=== PATIENT | male | born 1960 | race Caucasian/White ===

== ENCOUNTER 2018-05-03 15:40 | Emergency (ER) | payer BC ==
[~2018-05-03 15:40] MED LIST: ALBU18HF2 IH; ASPI81TA35 PO; ATOR-2 PO; CLOP75TA33 PO; GABA-532 PO; GLIM4TAB79 PO; LISI1TAB11 PO; MELO-102 PO; METF-950 PO; METH-360 PO; METO50TA16 PO
--- NOTE | 2018-05-03 16:35 | NUR ---
PT CALLED X3 TO TRIAGE, NIL, DINING CAR CONDUCTOR NOTIFIED, NO FURTHER ACTION.
== END 2018-05-03 16:36 | disposition left against medical advice (07) ==
LOC: ER 15:41
DX: J34.89 Other specified disorders of nose and nasal sinuses (principal); Z53.21 Procedure and treatment not carried out due to patient leaving prior to being seen by health care provider

== ENCOUNTER 2018-05-04 18:43 | Emergency (ER) | payer BC, OTHER ==
[~2018-05-04] VITALS: Ht 175.3 cm; Wt 105.4 kg
[2018-05-04 18:57] VITALS: BP 171/102
[2018-05-05] MEDS ORDERED: sulfamethoxazole/trimethoprim DS (800/160mg) tablet PO ONE (00:10)
[2018-05-05] MEDS ORDERED: SULF1TAB49 PO (00:10)
== END 2018-05-05 00:17 | disposition home or self-care (01) ==
LOC: ER 18:43
DX: J34.0 Abscess, furuncle and carbuncle of nose (principal); I25.10 Atherosclerotic heart disease of native coronary artery without angina pectoris; E78.00 Pure hypercholesterolemia, unspecified; I10 Essential (primary) hypertension; G89.29 Other chronic pain; F17.200 Nicotine dependence, unspecified, uncomplicated; Z88.8 Allergy status to other drugs, medicaments and biological substances; Z79.82 Long term (current) use of aspirin; Z79.899 Other long term (current) drug therapy
CPT/HCPCS: 99283

== ENCOUNTER 2019-04-16 18:11 | Emergency (ER) | payer MEDICAID ==
[~2019-04-16] VITALS: Ht 175.3 cm; Wt 86.4 kg
[~2019-04-16 18:11] MED LIST changes: +GLIM4TAB4 PO; -GLIM4TAB79 PO; -LISI1TAB11 PO; +LISI1TAB28 PO
[2019-04-16 18:16] VITALS: BP 151/95
[2019-04-16] MEDS ORDERED: TETanus/Pertussis (Acell)/Diphther VAC/PF (Tdap-Adult) 0.5ml syringe IMVAC ONE (18:40)
== END 2019-04-16 19:54 | disposition home or self-care (01) ==
LOC: ER 18:12
DX: S81.011A Laceration without foreign body, right knee, initial encounter (principal); I25.10 Atherosclerotic heart disease of native coronary artery without angina pectoris; E78.00 Pure hypercholesterolemia, unspecified; I10 Essential (primary) hypertension; G89.29 Other chronic pain; Z98.890 Other specified postprocedural states; Z88.8 Allergy status to other drugs, medicaments and biological substances; Z79.82 Long term (current) use of aspirin; Z79.84 Long term (current) use of oral hypoglycemic drugs; Z79.899 Other long term (current) drug therapy; W26.8XXA Contact with other sharp object(s), not elsewhere classified, initial encounter; Y93.89 Activity, other specified; Y92.89 Other specified places as the place of occurrence of the external cause; Y99.8 Other external cause status
CPT/HCPCS: 12001; 73560; 90471; 90715; 99283

== ENCOUNTER 2019-09-29 10:29 | Emergency (ER) | payer MEDICAID ==
[~2019-09-29] VITALS: Ht 175.3 cm; Wt 90.0 kg
[~2019-09-29 10:29] MED LIST changes: -GLIM4TAB4 PO; +GLIM4TAB7 PO
[2019-09-29] MEDS ORDERED: LIDOcaine 1% W/epiNEPHrine 1:200,000 10ml vial IJ ONE (13:45)
[2019-09-29 15:17] VITALS: BP 135/94
== END 2019-09-29 15:26 | disposition home or self-care (01) ==
LOC: ER 10:29
DX: S80.12XA Contusion of left lower leg, initial encounter (principal); I25.10 Atherosclerotic heart disease of native coronary artery without angina pectoris; E78.00 Pure hypercholesterolemia, unspecified; I10 Essential (primary) hypertension; E11.9 Type 2 diabetes mellitus without complications; G89.29 Other chronic pain; Z88.8 Allergy status to other drugs, medicaments and biological substances; Z79.82 Long term (current) use of aspirin; Z79.899 Other long term (current) drug therapy; W01.0XXA Fall on same level from slipping, tripping and stumbling without subsequent striking against object, initial encounter; Y93.89 Activity, other specified; Y92.89 Other specified places as the place of occurrence of the external cause; Y99.8 Other external cause status
CPT/HCPCS: 10060; 10140; 99282; 99284

== ENCOUNTER 2019-12-14 08:45 | Emergency (ER) | payer MEDICAID ==
[~2019-12-14] VITALS: Ht 175.3 cm; Wt 109.1 kg
[~2019-12-14 08:45] MED LIST changes: -LISI1TAB28 PO; +LISI1TAB51 PO
[2019-12-14 09:06] VITALS: BP 129/87
--- NOTE | 2019-12-14 09:16 | NUR ---
pt is iv drug meth abuser multiple iv scab sr noted to the arms and legs.
[2019-12-14] MEDS ORDERED: DOXY100C43 PO (09:41)
[2019-12-14] MEDS ORDERED: CEPH500C5 PO (09:41)
[2019-12-14] MEDS ORDERED: IBUP-1985 PO (09:43)
[2019-12-14] MEDS ORDERED: cephalexin 500mg capsule PO ONE (09:45)
[2019-12-14] MEDS ORDERED: ibuprofen 200mg tablet PO ONE (09:45)
--- NOTE | 2019-12-14 09:47 | NUR ---
notified [facility] [employer] to tell pharmacist to verify the order of motrin.
--- NOTE | 2019-12-15 10:59 | NUR ---
Patient called regarding that fact that he was under the impression that prescriptions were called in last night to his pharmacy. I educated patient regarding the fact that he was given a written prescription and that we do not ever call in prescriptions, he is to take prescription into pharmacy of his choice. Patient stated that he is unable to get a ride to the pharmacy and that he will be getting them delivered. I told patient that I will call in prescriptions to pharmacy, but we do not normally call in prescriptions. Patient requested that prescription be called into [facility] in [place]. I called in prescripton that were prescribed for patient at time of discharge, to preferred pharmacy. Keflex doxycycline ibuprofen Patient is aware.
== END 2019-12-14 10:10 | disposition home or self-care (01) ==
LOC: ER 08:46
DX: L03.114 Cellulitis of left upper limb (principal); I25.10 Atherosclerotic heart disease of native coronary artery without angina pectoris; E78.00 Pure hypercholesterolemia, unspecified; I10 Essential (primary) hypertension; E11.9 Type 2 diabetes mellitus without complications; G89.29 Other chronic pain; F17.200 Nicotine dependence, unspecified, uncomplicated; F15.90 Other stimulant use, unspecified, uncomplicated; Z59.0 Homelessness; Z88.8 Allergy status to other drugs, medicaments and biological substances; Z79.82 Long term (current) use of aspirin; Z79.899 Other long term (current) drug therapy
CPT/HCPCS: 73130; 99283

== ENCOUNTER 2019-12-30 03:54 | Inpatient (IN) | payer MEDICAID ==
[~2019-12-30] VITALS: Ht 175.3 cm; Wt 94.4 kg
[2019-12-30] VITALS (9 sets, daily range): BP systolic 94–136; BP diastolic 52–92
[~2019-12-30 03:54] MED LIST changes: +CEPH500C5 PO; +DOXY100C43 PO; +IBUP-1985 PO
[2019-12-30] MEDS ORDERED: furosemide 40mg/4ml inj IV ONE (04:35)
[2019-12-30] MEDS ORDERED: ipratropium/albuterol 3ml nebule NEB ONE (04:35)
[2019-12-30] MEDS ORDERED: FUROSEMIDE ONE (04:45)
[2019-12-30] MEDS ORDERED: ipratropium/albuterol 3ml nebule ONE (04:50)
[2019-12-30 05:12] LABS: BASOPHILS # (AUTO) 0.1 X10'3 (0-0.2); BASOPHILS % (AUTO) 0.6 % (0-1); EOSINOPHILS # (AUTO) 0.1 X10'3 (0-0.9); EOSINOPHILS % (AUTO) 0.8 % (0-6); HEMATOCRIT 36.4 % (42.0-52.0); LYMPHOCYTES # (AUTO) 1.3 X10'3 (1.1-4.8); MEAN CORPUSCULAR HGB CONC 32.9 g/dL (33.0-36.5); MEAN CORPUSCULAR VOLUME 91.3 FL (78-98); MEAN PLATELET VOLUME 8.3 FL (7.4-10.4); MONOCYTES # (AUTO) 0.6 X10'3 (0-0.9); MONOCYTES % (AUTO) 7.4 % (2-12); NEUTROPHILS # (AUTO) 6.4 X10'3 (1.8-7.7); NEUTROPHILS % (AUTO) 76.2 % (42-75); PLATELET COUNT 270 X10'3 (140-440); RED BLOOD COUNT 3.99 X10'6 (4.70-6.10); WHITE BLOOD COUNT 8.4 X10'3 (4.5-11.0)
[2019-12-30 05:16] LABS: ALANINE AMINOTRANSFERASE 48 U/L (12-78); ALBUMIN 3.1 G/DL (3.4-5.0); ALBUMIN/GLOBULIN RATIO 0.9 (1.1-1.5); ALKALINE PHOSPHATASE 116 IU/L (46-116); ANION GAP 8 (8-16); ASPARTATE AMINO TRANSFERASE 51 U/L (10-37); BILIRUBIN,TOTAL 1.9 MG/DL (0.1-1.0); BLOOD UREA NITROGEN 29 MG/DL (7-18); BUN/CREATININE RATIO 23.4 (5.4-32.0); CALCIUM 9.4 MG/DL (8.5-10.1); CHLORIDE 101 MMOL/L (99-107); CREATININE 1.24 MG/DL (0.60-1.10); GLUCOSE 281 MG/DL (70-104); POTASSIUM 4.4 MMOL/L (3.5-5.1); SODIUM 134 MMOL/L (135-145); TOTAL PROTEIN 6.4 G/DL (6.4-8.2); eGFR 60 ML/MIN
[2019-12-30] MEDS ORDERED: aspirin 325mg tablet PO ONE (06:10)
[2019-12-30] MEDS ORDERED: aspirin 325mg tablet ONE (06:31)
[2019-12-30] MEDS ORDERED: IPRA3AMP31 INH (07:47)
[2019-12-30] MEDS ORDERED: PRAM0.5T12 PO (07:47)
[2019-12-30] MEDS ORDERED: [UNRECOGNIZED DRUG - CODE] SQ (07:47)
--- NOTE | 2019-12-30 09:23 | NUR ---
BREAKING PRIMARY RN, SENT URINE, EMPTIED COMMODE, PT HAS NO OTHER NEEDS AT THIS TIME
[2019-12-30] MEDS ORDERED: furosemide 20 MG/2 ML vial IV ONE (10:15)
[2019-12-30] MEDS ORDERED: MESSAGE TO PHARMACY PO ONE (10:20)
[2019-12-30] MEDS ORDERED: glucagon, human recombinant 1mg kit SUBCUT PRN (10:20)
[2019-12-30] MEDS ORDERED: magnesium Cl slow-release 64mg tablet PO PRN (10:20)
[2019-12-30] MEDS ORDERED: ondansetron/PF 4mg/2ml inj IV PRN (10:20)
[2019-12-30] MEDS ORDERED: acetaminophen 650mg rectal suppository RC PRN (10:20)
[2019-12-30] MEDS ORDERED: mag hydrox/Alum hydrox/simeth 30ml oral suspension PO PRN (10:20)
[2019-12-30] MEDS ORDERED: methylPREDNISolone sod succ 125mg/2ml vial IV ONE (10:20)
[2019-12-30] MEDS ORDERED: potassium CL 10mEq/100ml bag 100 ML IV PRN ×2 (10:20)
[2019-12-30] MEDS ORDERED: morphine 2 MG/ML inj. syringe IV PRN ×2 (10:20)
[2019-12-30] MEDS ORDERED: magnesium hydroxide 30ml (MOM) UD suspension PO PRN (10:20)
[2019-12-30] MEDS ORDERED: magnesium 4gm in 100ml NS 100 ML IV PRN (10:20)
[2019-12-30] MEDS ORDERED: dextrose 50%-water 50ml dispensing syringe IV PRN ×2 (10:20)
[2019-12-30] MEDS ORDERED: acetaminophen 325mg tablet PO PRN ×2 (10:20)
[2019-12-30] MEDS ORDERED: dextrose ORAL solution 15 GM/59 ML bottle PO PRN ×2 (10:20)
[2019-12-30] MEDS ORDERED: bisacodyl 10mg suppository rectal RC PRN (10:20)
[2019-12-30] MEDS ORDERED: HYDROcodone/acetaminophen 5mg/325mg tablet PO PRN (10:20)
[2019-12-30] MEDS ORDERED: diphenhydrAMINE 25mg capsule PO PRN (10:20)
[2019-12-30] MEDS ORDERED: magnesium 2GM in 50ml NS 50 ML IV PRN (10:20)
[2019-12-30] MEDS ORDERED: HYDROcodone/acetaminophen 10/325mg tab PO PRN (10:20)
[2019-12-30 10:31] LABS: CLARITY,URINE CLEAR (Clear); COLOR,URINE STRAW (Yellow); GLUCOSE, URINE NEGATIVE (Neg); KETONES,URINE NEGATIVE (Neg); LEUKOCYTE ESTERASE ,URINE NEGATIVE (Neg); NITRITES, URINE NEGATIVE (Neg); OCCULT BLOOD,URINE TRACE-INTACT (Neg); PH,URINE 5.5 (4.8-8.0); PROTEIN,URINE NEGATIVE (Neg); UROBILINOGEN,URINE 0.2 E.U/dL (0.2-1.0)
[2019-12-30 10:32] LABS: UA COLLECTION TYPE STRAIGHT CATH
[2019-12-30 10:39] LABS: BACTERIA,URINE NONE SEEN /HPF (Neg); SQUAMOUS EPITHELIAL CELL,UR FEW /LPF (FEW)
[2019-12-30 10:40] LABS: RBC,URINE 0-2 /HPF (0-2); WBC,URINE NONE SEEN /HPF (0-4)
[2019-12-30 10:45] LABS: URINE AMPHETAMINE SCREEN POSITIVE (Neg); URINE BARBITUATE SCREEN NEGATIVE (Neg); URINE BENZODIAZEPINES SCREEN NEGATIVE (Neg); URINE CANNABINOID SCREEN NEGATIVE (Neg); URINE COCAINE SCREEN NEGATIVE (Neg); URINE METHADONE SCREEN NEGATIVE (Neg); URINE OPIATE SCREEN NEGATIVE (Neg); URINE PHENCYCLIDINE SCREEN NEGATIVE (Neg)
[2019-12-30] MEDS: ipratropium/albuterol 3ml nebule NEB SCH ×3 (11:00→20:14)
[2019-12-30] MEDS: FUROSEMIDE IV SCH ×2 (11:13→21:39)
[2019-12-30] MEDS: NORMAL SALINE IV SCH ×2 (11:13→21:39)
[2019-12-30 11:15] LABS: HEMOGLOBIN A1C 10.8 % (4.5-6.2)
--- NOTE | 2019-12-30 11:37 | NUR ---
Patient admitted to PCU at this time. Patient arrived to floor, awake, alert. Lasix gtt infusing at this time at ordered rate. Admit VS taken at this time. Patient oriented to room and call light use. No signs of distress at this time. MRSA swab taken. Will continue to monitor.
--- NOTE | 2019-12-30 11:45 | NUR ---
PT URINE EMPTIED 700 ML URINE OUTPUT.
--- NOTE | 2019-12-30 12:00 | NUR ---
Patient refusing to use urinal for strict I&O measurement. Patient educated on need for strict measurement of intake and output, again patient refused at this time. He states "what does it matter? I need to use the toilet. I'm not using that thing, my balls are too big".
--- NOTE | 2019-12-30 13:30 | NUR ---
Spoke with Dr. Florence by phone. He had called inquiring about patient and cardiology status. Discussed patient, labs, echo results and current treatment with lasix gtt. Reviewed labs with Dr. Florence as well as echo results. He states that this is likely medical management, can place patient on dobutamine if hospitalist is agreeable instead of lasix. He states that he would also discuss this with managing hospitalist, Dr. Zamora.
[2019-12-30 13:58] LABS: ALBUMIN 3.5 G/DL (3.4-5.0); ANION GAP 10 (8-16); BLOOD UREA NITROGEN 29 MG/DL (7-18); BUN/CREATININE RATIO 24.8 (5.4-32.0); CALCIUM 9.5 MG/DL (8.5-10.1); CHLORIDE 99 MMOL/L (99-107); CREATININE 1.17 MG/DL (0.60-1.10); GLUCOSE 240 MG/DL (70-104); MAGNESIUM 1.6 MG/DL (1.5-2.4); PHOSPHORUS 4.7 MG/DL (2.3-4.5); POTASSIUM 3.7 MMOL/L (3.5-5.1); SODIUM 138 MMOL/L (135-145); TOTAL CARBON DIOXIDE 29.3 MMOL/L (24-32); eGFR 64 ML/MIN
[2019-12-30] MEDS: methylPREDNISolone sod succ/PF 40mg inj. IV SCH ×2 (14:31→19:50)
--- NOTE | 2019-12-30 17:03 | NUR ---
Attempted to culture left hand wound per Dr. Zamora orders, no fluid at this time, unable to obtain wound culture at this time. Will obtain wound care consult.
--- NOTE | 2019-12-30 17:37 | NUR ---
PAGER ID: [phone] MESSAGE: Anna bertrand [phone]. RE Elias Hoyos [phone]. FYI patient had a 7 beat run of v tach, also looks to be in/out of afib with a bundle, now sinus tach 97bpm. Thanks!
--- NOTE | 2019-12-30 18:10 | NUR ---
Dr. Florence evaluated patient at bedside, recommending medical management and consult with hospitalist for further care
--- NOTE | 2019-12-30 18:25 | NUR ---
Patient in room PCU 3021. I have received report from Anna MIRANDA and had the opportunity to ask questions and assume patient care.
--- NOTE | 2019-12-30 18:27 | NUR ---
Problems reprioritized. Patient report given, questions answered & plan of care reviewed with Monserrat MIRANDA and Zhane MIRANDA. Addendum: 12/30/19 at 1828 by Anna Guerrero RN report given to Debbie MIRANDA
[2019-12-30] MEDS: heparin, porcine 5000 units/ml vial SQ SCH (19:51)
[2019-12-30] MEDS: insulin Lispro (HumaLOG) vial - multi-dose SQ SCH ×2 (19:54→21:25)
[2019-12-30] MEDS: K and/or MAG REPLACEMENT MC SCH (20:00)
[2019-12-30] MEDS: insulin glargine (Lantus) pen - multi-dose SQ SCH (21:26)
[2019-12-30 22:52] LABS: ANION GAP 10 (8-16); BLOOD UREA NITROGEN 35 MG/DL (7-18); BUN/CREATININE RATIO 23.8 (5.4-32.0); CALCIUM 8.6 MG/DL (8.5-10.1); CHLORIDE 98 MMOL/L (99-107); CREATININE 1.47 MG/DL (0.60-1.10); GLUCOSE 352 MG/DL (70-104); MAGNESIUM 1.5 MG/DL (1.5-2.4); PHOSPHORUS 4.8 MG/DL (2.3-4.5); POTASSIUM 3.3 MMOL/L (3.5-5.1); SODIUM 138 MMOL/L (135-145); TOTAL CARBON DIOXIDE 30.2 MMOL/L (24-32); TROPONIN I 0.04 NG/ML (0.0-0.05); eGFR 49 ML/MIN
[2019-12-31] VITALS (8 sets, daily range): BP systolic 91–132; BP diastolic 54–85
[2019-12-31 01:58] LABS: EOSINOPHILS % (AUTO) 0 % (0-6); MONOCYTES # (AUTO) 0.1 X10'3 (0-0.9); RED BLOOD COUNT 3.99 X10'6 (4.70-6.10)
[2019-12-31 02:00] LABS: BASOPHILS % (AUTO) 0.1 % (0-1); HEMATOCRIT 36.1 % (42.0-52.0); LYMPHOCYTES # (AUTO) 0.3 X10'3 (1.1-4.8); LYMPHOCYTES % (AUTO) 6.1 % (21-51); MEAN CORPUSCULAR HEMOGLOBIN 30.1 PG (27.0-31.0); MEAN CORPUSCULAR HGB CONC 33.2 g/dL (33.0-36.5); MEAN CORPUSCULAR VOLUME 90.5 FL (78-98); MEAN PLATELET VOLUME 7.9 FL (7.4-10.4); MONOCYTES % (AUTO) 2.1 % (2-12); NEUTROPHILS % (AUTO) 91.7 % (42-75); PLATELET COUNT 247 X10'3 (140-440); RED CELL DISTRIBUTION WIDTH 18.1 % (11.5-14.5); WHITE BLOOD COUNT 5.4 X10'3 (4.5-11.0)
[2019-12-31] MEDS: methylPREDNISolone sod succ/PF 40mg inj. IV SCH ×4 (02:07→19:18)
[2019-12-31 02:16] LABS: ALANINE AMINOTRANSFERASE 51 U/L (12-78); ALBUMIN 3.1 G/DL (3.4-5.0); ALBUMIN/GLOBULIN RATIO 0.9 (1.1-1.5); ALKALINE PHOSPHATASE 106 IU/L (46-116); ANION GAP 8 (8-16); ASPARTATE AMINO TRANSFERASE 47 U/L (10-37); BILIRUBIN,TOTAL 2.5 MG/DL (0.1-1.0); BLOOD UREA NITROGEN 34 MG/DL (7-18); BUN/CREATININE RATIO 24.3 (5.4-32.0); CALCIUM 8.6 MG/DL (8.5-10.1); CHLORIDE 100 MMOL/L (99-107); CHOLESTEROL 109 MG/DL (0-200); GLUCOSE 171 MG/DL (70-104); HDL CHOLESTEROL 36 MG/DL (35-60); LDL CHOLESTEROL 72 MG/DL (50-100); MAGNESIUM 1.5 MG/DL (1.5-2.4); PHOSPHORUS 4.8 MG/DL (2.3-4.5); SODIUM 140 MMOL/L (135-145); TOTAL CARBON DIOXIDE 31.8 MMOL/L (24-32); TOTAL PROTEIN 6.7 G/DL (6.4-8.2); TRIGLYCERIDES 36 MG/DL (20-135); eGFR 52 ML/MIN
[2019-12-31 02:17] LABS: POTASSIUM 2.9 MMOL/L (3.5-5.1)
[2019-12-31] MEDS: potassium Cl 20 mEq SR tablet PO PRN ×4 (02:37→17:52)
--- NOTE | 2019-12-31 02:40 | NUR ---
critical value K 2.9, Dr Larson informed, continue lasix drip, replace K per protocol.
--- NOTE | 2019-12-31 04:00 | NUR ---
Pt refused blood pressure reading at 0400.
[2019-12-31] MEDS: ipratropium/albuterol 3ml nebule NEB SCH ×7 (05:12→23:30)
--- NOTE | 2019-12-31 06:25 | NUR ---
Problems reprioritized. Patient report given, questions answered & plan of care reviewed with Lino MIRANDA.
--- NOTE | 2019-12-31 06:30 | NUR ---
Patient in room PCU 3021. I have received report from Debbie MIRANDA and had the opportunity to ask questions and assume patient care.
[2019-12-31] MEDS: aspirin 81mg tablet.DR PO SCH (07:37)
[2019-12-31] MEDS: pramipexole 0.25mg tablet PO SCH (07:38)
[2019-12-31] MEDS: HYDROchlorothiazide 12.5mg capsule PO SCH (07:38)
[2019-12-31] MEDS: atorvastatin 20mg tablet PO SCH (07:38)
[2019-12-31] MEDS: lisinopril 20mg tablet PO SCH (07:39)
[2019-12-31] MEDS: heparin, porcine 5000 units/ml vial SQ SCH ×2 (07:39→19:17)
[2019-12-31] MEDS: K and/or MAG REPLACEMENT MC SCH ×2 (07:48→19:25)
[2019-12-31 08:45] LABS: ALBUMIN 3.3 G/DL (3.4-5.0); ANION GAP 8 (8-16); BLOOD UREA NITROGEN 35 MG/DL (7-18); BUN/CREATININE RATIO 30.7 (5.4-32.0); CHLORIDE 98 MMOL/L (99-107); CREATININE 1.14 MG/DL (0.60-1.10); GLUCOSE 208 MG/DL (70-104); MAGNESIUM 1.6 MG/DL (1.5-2.4); PHOSPHORUS 4.7 MG/DL (2.3-4.5); SODIUM 138 MMOL/L (135-145); TOTAL CARBON DIOXIDE 32.3 MMOL/L (24-32); eGFR 66 ML/MIN
[2019-12-31] MEDS: FUROSEMIDE IV SCH (08:54)
[2019-12-31] MEDS: NORMAL SALINE IV SCH (08:54)
[2019-12-31 08:56] LABS: POTASSIUM 2.8 MMOL/L (3.5-5.1)
[2019-12-31] MEDS: insulin Lispro (HumaLOG) vial - multi-dose SQ SCH ×4 (08:58→21:08)
--- NOTE | 2019-12-31 09:14 | NUR ---
PAGER ID: [phone] MESSAGE: Re: Zia Hoyos. Room: 3021. Pt has critical potassium of 2.8. Currently replacing potassium with 40meq x3 doses. -[facility][1] #[id number] Dr. Zamora paged concerning Pt's critical potassium,
[2019-12-31] MEDS: spironolactone 25 MG tablet PO SCH (12:22)
[2019-12-31] MEDS: metoprolol succinate 25mg (24-HOUR) SR. Tablet PO SCH (12:23)
[2019-12-31] MEDS: nystatin 15 GM powder TP SCH ×2 (13:30→21:10)
[2019-12-31 14:02] LABS: ALBUMIN 3.3 G/DL (3.4-5.0); CHLORIDE 97 MMOL/L (99-107); PHOSPHORUS 4.5 MG/DL (2.3-4.5); POTASSIUM 3.2 MMOL/L (3.5-5.1); TOTAL CARBON DIOXIDE 34.7 MMOL/L (24-32)
[2019-12-31 14:13] LABS: ANION GAP 4 (8-16); BLOOD UREA NITROGEN 36 MG/DL (7-18); BUN/CREATININE RATIO 26.3 (5.4-32.0); CALCIUM 8.9 MG/DL (8.5-10.1); CREATININE 1.37 MG/DL (0.60-1.10); GLUCOSE 293 MG/DL (70-104); MAGNESIUM 1.8 MG/DL (1.5-2.4); SODIUM 136 MMOL/L (135-145); eGFR 53 ML/MIN
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
--- NOTE | 2019-12-31 18:00 | NUR ---
Problems reprioritized. Patient report given, questions answered & plan of care reviewed with Kesha MIRANDA.
[2019-12-31] MEDS: furosemide 20 MG/2 ML vial IV SCH (19:18)
[2019-12-31] MEDS: insulin glargine (Lantus) pen - multi-dose SQ SCH (21:09)
[2019-12-31 21:22] LABS: ALBUMIN 3.2 G/DL (3.4-5.0); ANION GAP 6 (8-16); BLOOD UREA NITROGEN 43 MG/DL (7-18); BUN/CREATININE RATIO 25.9 (5.4-32.0); CALCIUM 8.8 MG/DL (8.5-10.1); CHLORIDE 97 MMOL/L (99-107); CREATININE 1.66 MG/DL (0.60-1.10); GLUCOSE 329 MG/DL (70-104); MAGNESIUM 1.7 MG/DL (1.5-2.4); PHOSPHORUS 4.2 MG/DL (2.3-4.5); POTASSIUM 3.3 MMOL/L (3.5-5.1); SODIUM 135 MMOL/L (135-145); TOTAL CARBON DIOXIDE 31.6 MMOL/L (24-32); eGFR 43 ML/MIN
[2020-01-01 01:16] LABS: BASOPHILS % (AUTO) 0.2 % (0-1); EOSINOPHILS % (AUTO) 0 % (0-6); HEMATOCRIT 38.6 % (42.0-52.0); HEMOGLOBIN 12.5 g/dl (14.0-17.9); LYMPHOCYTES # (AUTO) 0.4 X10'3 (1.1-4.8); LYMPHOCYTES % (AUTO) 3.4 % (21-51); MEAN CORPUSCULAR HEMOGLOBIN 29.2 PG (27.0-31.0); MEAN CORPUSCULAR HGB CONC 32.4 g/dL (33.0-36.5); MEAN PLATELET VOLUME 8.1 FL (7.4-10.4); MONOCYTES # (AUTO) 0.6 X10'3 (0-0.9); MONOCYTES % (AUTO) 4.6 % (2-12); NEUTROPHILS # (AUTO) 11.5 X10'3 (1.8-7.7); NEUTROPHILS % (AUTO) 91.8 % (42-75); PLATELET COUNT 260 X10'3 (140-440); RED BLOOD COUNT 4.29 X10'6 (4.70-6.10); RED CELL DISTRIBUTION WIDTH 18.2 % (11.5-14.5); WHITE BLOOD COUNT 12.6 X10'3 (4.5-11.0)
[2020-01-01 01:32] LABS: ALANINE AMINOTRANSFERASE 52 U/L (12-78); ALBUMIN 3.3 G/DL (3.4-5.0); ALBUMIN/GLOBULIN RATIO 0.9 (1.1-1.5); ALKALINE PHOSPHATASE 104 IU/L (46-116); ANION GAP 8 (8-16); ASPARTATE AMINO TRANSFERASE 41 U/L (10-37); BILIRUBIN,TOTAL 2.1 MG/DL (0.1-1.0); BLOOD UREA NITROGEN 43 MG/DL (7-18); BUN/CREATININE RATIO 31.2 (5.4-32.0); CALCIUM 8.7 MG/DL (8.5-10.1); CHLORIDE 99 MMOL/L (99-107); CREATININE 1.38 MG/DL (0.60-1.10); GLUCOSE 120 MG/DL (70-104); MAGNESIUM 1.7 MG/DL (1.5-2.4); POTASSIUM 3.3 MMOL/L (3.5-5.1); SODIUM 138 MMOL/L (135-145); TOTAL CARBON DIOXIDE 31.2 MMOL/L (24-32); eGFR 53 ML/MIN
[2020-01-01 02:00] VITALS: BP 106/74
[2020-01-01] MEDS: potassium Cl 20 mEq SR tablet PO PRN ×2 (03:02→07:49)
[2020-01-01] MEDS: methylPREDNISolone sod succ/PF 40mg inj. IV SCH ×3 (03:02→13:19)
[2020-01-01] MEDS: ipratropium/albuterol 3ml nebule NEB SCH ×3 (03:52→11:45)
--- NOTE | 2020-01-01 06:21 | NUR ---
Problems reprioritized. Patient report given, questions answered & plan of care reviewed with RUBEN Huynh.
[2020-01-01 07:00] VITALS: BP 104/74
--- NOTE | 2020-01-01 07:04 | NUR ---
Patient in room PCU 3021. I have received report from RUBEN Huynh and had the opportunity to ask questions and assume patient care.
[2020-01-01] MEDS: aspirin 81mg tablet.DR PO SCH (07:48)
[2020-01-01] MEDS: HYDROchlorothiazide 12.5mg capsule PO SCH (07:48)
[2020-01-01] MEDS: metoprolol succinate 25mg (24-HOUR) SR. Tablet PO SCH (07:48)
[2020-01-01] MEDS: furosemide 20 MG/2 ML vial IV SCH (07:48)
[2020-01-01] MEDS: atorvastatin 20mg tablet PO SCH (07:49)
[2020-01-01] MEDS: pramipexole 0.25mg tablet PO SCH (07:49)
[2020-01-01] MEDS: spironolactone 25 MG tablet PO SCH (07:49)
[2020-01-01] MEDS: lisinopril 20mg tablet PO SCH (07:49)
[2020-01-01] MEDS: heparin, porcine 5000 units/ml vial SQ SCH (07:50)
[2020-01-01] MEDS: K and/or MAG REPLACEMENT MC SCH (08:00)
[2020-01-01] MEDS: nystatin 15 GM powder TP SCH ×2 (09:12→13:19)
[2020-01-01] MEDS: insulin Lispro (HumaLOG) vial - multi-dose SQ SCH ×2 (09:18→13:21)
[2020-01-01 11:00] VITALS: BP 98/66
[2020-01-01] MEDS ORDERED: AMA1T PO (13:35)
[2020-01-01] MEDS ORDERED: LINA5TAB4 PO (13:35)
[2020-01-01] MEDS ORDERED: SPIR25TA PO (13:35)
[2020-01-01] MEDS ORDERED: METO-395 PO (13:35)
[2020-01-01] MEDS ORDERED: FURO-150 PO (13:35)
[2020-01-01] MEDS ORDERED: BUDE10.22 INH (15:43)
--- NOTE | 2020-01-01 17:07 | NUR ---
Pt stable for discharge per MD orders. Provided discharge instruction and education. Answered any questions or concerns patient may have. Tele monitor removed. PIV removed. Belongings sent with pt. Pt walked down to lobby and into friends car by Resource Nurse.
== END 2020-01-01 17:09 | disposition home or self-care (01) | DRG 194 ==
LOC: ER 03:56 → ED HOLD 10:19 → PCU 3S 11:38
PROVIDERS: ADMIT Family Medicine; ATTEND Family Medicine
DX: I11.0 Hypertensive heart disease with heart failure (principal); I21.A1 Myocardial infarction type 2; I50.23 Acute on chronic systolic (congestive) heart failure; E11.9 Type 2 diabetes mellitus without complications; E78.00 Pure hypercholesterolemia, unspecified; F15.10 Other stimulant abuse, uncomplicated; F17.200 Nicotine dependence, unspecified, uncomplicated; I25.10 Atherosclerotic heart disease of native coronary artery without angina pectoris; D63.8 Anemia in other chronic diseases classified elsewhere; J44.1 Chronic obstructive pulmonary disease with (acute) exacerbation; G89.29 Other chronic pain; I42.0 Dilated cardiomyopathy; I42.7 Cardiomyopathy due to drug and external agent; M54.9 Dorsalgia, unspecified; N17.9 Acute kidney failure, unspecified; Z66 Do not resuscitate; N50.819 Testicular pain, unspecified; N50.89 Other specified disorders of the male genital organs; Z59.0 Homelessness; Z79.82 Long term (current) use of aspirin; Z79.899 Other long term (current) drug therapy; Z91.19 Patient's noncompliance with other medical treatment and regimen; Z95.5 Presence of coronary angioplasty implant and graft
CPT/HCPCS: 36415; 71045; 76870; 76937; 80053; 80061; 80069; 80305; 81001; 82948; 83036; 83735; 83880; 84484; 85025; 87081; 93306; 93976; 94640; 94760; 96374; 97116; 97162; 99285; G0378; J1644; J1815; J1940; J2920; J2930

== ENCOUNTER 2020-01-25 11:43 | Inpatient (IN) | payer MEDICAID ==
[~2020-01-25] VITALS: Ht 175.3 cm; Wt 109.0 kg
[~2020-01-25 11:43] MED LIST changes: +AMA1T PO; +BUDE10.22 INH; -CEPH500C5 PO; -CLOP75TA33 PO; -DOXY100C43 PO; +FURO-150 PO; -GABA-532 PO; -GLIM4TAB7 PO; -IBUP-1985 PO; +IPRA3AMP31 INH; +LINA5TAB4 PO; -MELO-102 PO; -METH-360 PO; +METO-395 PO; -METO50TA16 PO; +PRAM0.5T12 PO; +SPIR25TA PO; +[UNRECOGNIZED DRUG - CODE] SQ
[2020-01-25 12:30] LABS: BASOPHILS % (AUTO) 0.4 % (0-1); EOSINOPHILS % (AUTO) 0.2 % (0-6); HEMATOCRIT 40.1 % (42.0-52.0); HEMOGLOBIN 13.1 g/dl (14.0-17.9); LYMPHOCYTES % (AUTO) 8.5 % (21-51); MEAN CORPUSCULAR HEMOGLOBIN 30.1 PG (27.0-31.0); MEAN CORPUSCULAR HGB CONC 32.6 g/dL (33.0-36.5); MEAN CORPUSCULAR VOLUME 92.3 FL (78-98); MEAN PLATELET VOLUME 7.8 FL (7.4-10.4); MONOCYTES # (AUTO) 0.7 X10'3 (0-0.9); MONOCYTES % (AUTO) 6.2 % (2-12); NEUTROPHILS # (AUTO) 9.6 X10'3 (1.8-7.7); NEUTROPHILS % (AUTO) 84.7 % (42-75); PLATELET COUNT 365 X10'3 (140-440); RED BLOOD COUNT 4.34 X10'6 (4.70-6.10); RED CELL DISTRIBUTION WIDTH 18.7 % (11.5-14.5); WHITE BLOOD COUNT 11.3 X10'3 (4.5-11.0)
[2020-01-25 12:53] LABS: ALANINE AMINOTRANSFERASE 46 U/L (12-78); ALBUMIN 3.2 G/DL (3.4-5.0); ALBUMIN/GLOBULIN RATIO 0.8 (1.1-1.5); ALKALINE PHOSPHATASE 135 IU/L (46-116); ANION GAP 8 (8-16); ASPARTATE AMINO TRANSFERASE 37 U/L (10-37); BILIRUBIN,TOTAL 1.7 MG/DL (0.1-1.0); BLOOD UREA NITROGEN 30 MG/DL (7-18); CHLORIDE 100 MMOL/L (99-107); CREATININE 1.07 MG/DL (0.60-1.10); GLUCOSE 359 MG/DL (70-104); POTASSIUM 4.9 MMOL/L (3.5-5.1); SODIUM 132 MMOL/L (135-145); TOTAL CARBON DIOXIDE 24.5 MMOL/L (24-32); TOTAL PROTEIN 7.2 G/DL (6.4-8.2); eGFR 71 ML/MIN
[2020-01-25 12:54] LABS: ANISOCYTOSIS 2+; PLATELET ESTIMATE NORMAL; SCHISTOCYTES FEW
[2020-01-25 12:55] LABS: BURR CELLS FEW
[2020-01-25] MEDS ORDERED: furosemide 10 MG/1 ML 10ml inj IV ONE (13:20)
[2020-01-25] MEDS ORDERED: albuterol 2.5 MG/3 ML nebule NEB ONE (13:20)
[2020-01-25] MEDS ORDERED: albuterol 2.5 MG/3 ML nebule ONE (14:29)
--- NOTE | 2020-01-25 14:30 | NUR ---
rt at bedside giving neb tx.no distress noted.
[2020-01-25] MEDS ORDERED: BUDE10.27 IH (14:51)
[2020-01-25] MEDS ORDERED: IPRA3AMP9 IH (14:51)
[2020-01-25] MEDS ORDERED: GLIM1TAB6 PO (14:51)
[2020-01-25] MEDS ORDERED: LISI1TAB32 PO (14:51)
[2020-01-25] MEDS ORDERED: SPIR25TA5 PO (14:51)
[2020-01-25] MEDS ORDERED: METO-395 PO (14:51)
[2020-01-25] MEDS ORDERED: METF-438 PO (14:51)
[2020-01-25] MEDS ORDERED: FURO20TA4 PO (14:51)
--- NOTE | 2020-01-25 15:00 | NUR ---
dr cole came to assess the pt,pt is in restroom .
[2020-01-25] MEDS ORDERED: metoclopramide 5 mg/ml inj IV PRN (15:15)
[2020-01-25] MEDS ORDERED: magnesium 4gm in 100ml NS 100 ML IV PRN (15:15)
[2020-01-25] MEDS ORDERED: potassium CL 10mEq/100ml bag 100 ML IV PRN ×2 (15:15)
[2020-01-25] MEDS ORDERED: ondansetron/PF 4mg/2ml inj IV PRN (15:15)
[2020-01-25] MEDS ORDERED: mag hydrox/Alum hydrox/simeth 30ml oral suspension PO PRN (15:15)
[2020-01-25] MEDS ORDERED: HYDROcodone/acetaminophen 10/325mg tab PO PRN (15:15)
[2020-01-25] MEDS ORDERED: magnesium 2GM in 50ml NS 50 ML IV PRN (15:15)
[2020-01-25] MEDS ORDERED: potassium Cl 20 mEq SR tablet PO PRN ×2 (15:15)
[2020-01-25] MEDS ORDERED: magnesium Cl slow-release 64mg tablet PO PRN (15:15)
[2020-01-25] MEDS ORDERED: HYDROcodone/acetaminophen 5mg/325mg tablet PO PRN (15:15)
[2020-01-25] MEDS ORDERED: bisacodyl 10mg suppository rectal RC PRN (15:15)
[2020-01-25] MEDS ORDERED: magnesium hydroxide 30ml (MOM) UD suspension PO PRN (15:15)
[2020-01-25] MEDS ORDERED: acetaminophen 325mg tablet PO PRN ×2 (15:15)
[2020-01-25 15:56] LABS: PARTIAL THROMBOPLASTIN TIME 29 SECONDS (22-32)
--- NOTE | 2020-01-25 16:18 | NUR ---
dr cole back again to see pt ,pt still using restroom.
[2020-01-25] MEDS ORDERED: ipratropium/albuterol 3ml nebule IH PRN (16:30)
--- NOTE | 2020-01-25 19:18 | NUR ---
Patient in room ED 11. I have received report from Leona MIRANDA and had the opportunity to ask questions and assume patient care.
[2020-01-25 19:20] VITALS: BP 140/104
[2020-01-25] MEDS: K and/or MAG REPLACEMENT MC SCH (20:00)
[2020-01-25] MEDS: budesonide 0.5mg/2ml UD nebule IH SCH (20:00)
[2020-01-25] MEDS: HYDROchlorothiazide 12.5mg capsule PO SCH (20:01)
[2020-01-25] MEDS: lisinopril 10 MG tablet PO SCH (20:02)
[2020-01-25] MEDS: furosemide 40mg/4ml inj IV SCH (20:02)
[2020-01-25] MEDS: enoxaparin 40mg/0.4ml syringe SQ SCH (20:03)
[2020-01-25] MEDS: pramipexole 1mg tablet PO SCH (20:21)
[2020-01-25] MEDS: sulfamethoxazole/trimethoprim DS (800/160mg) tablet PO SCH (20:56)
[2020-01-25] MEDS ORDERED: temazepam 15mg capsule PO PRN (21:00)
--- NOTE | 2020-01-25 21:50 | NUR ---
Paged MD Zuniga regarding patient's history of diabetes and not being on [facility]HM prorocol. PAGER ID: [phone] MESSAGE: Re: Zia Hoyos [phone]. Patient has history of DM, but not on diabetic protocol. Lab glucose in ER was 359. Do you want to place him on protocol? Thanks, Ward MIRANDA [phone]
--- NOTE | 2020-01-25 21:53 | NUR ---
Patient arrived to unit from ED via wheelchair at 1920. Patient oriented to room, hooked up to telemetry monitoring, MRSA swab collected, and call light within reach. A&Ox4. Vitals: BP: 140/104, HR: 115, SpO2: 93% on room air, respiratory rate: 22, and temperature: 97.7. Will continue to monitor.
[2020-01-25] MEDS ORDERED: glucagon, human recombinant 1mg kit SUBCUT PRN (21:55)
[2020-01-25] MEDS ORDERED: MESSAGE TO PHARMACY PO ONE (21:55)
[2020-01-25] MEDS ORDERED: dextrose 50%-water 50ml dispensing syringe IV PRN ×2 (21:55)
[2020-01-25] MEDS ORDERED: dextrose ORAL solution 15 GM/59 ML bottle PO PRN ×2 (21:55)
[2020-01-25 22:00] VITALS: BP 137/98
[2020-01-25] MEDS: insulin Lispro (HumaLOG) vial - multi-dose SQ SCH (22:47)
[2020-01-25] MEDS: insulin glargine (Lantus) pen - multi-dose SQ SCH (22:49)
[2020-01-26] VITALS (10 sets, daily range): BP systolic 95–126; BP diastolic 53–90
[2020-01-26 01:24] LABS: HEMATOCRIT 39.5 % (42.0-52.0); HEMOGLOBIN 13.2 g/dl (14.0-17.9); MEAN CORPUSCULAR HGB CONC 33.4 g/dL (33.0-36.5); MEAN CORPUSCULAR VOLUME 92.8 FL (78-98); PLATELET COUNT 326 X10'3 (140-440); RED BLOOD COUNT 4.25 X10'6 (4.70-6.10); RED CELL DISTRIBUTION WIDTH 18.5 % (11.5-14.5); WHITE BLOOD COUNT 9.5 X10'3 (4.5-11.0)
[2020-01-26 01:28] LABS: PARTIAL THROMBOPLASTIN TIME 31 SECONDS (22-32)
[2020-01-26 01:33] LABS: ALBUMIN 3.2 G/DL (3.4-5.0); ANION GAP 5 (8-16); BLOOD UREA NITROGEN 29 MG/DL (7-18); BUN/CREATININE RATIO 23.6 (5.4-32.0); CHLORIDE 99 MMOL/L (99-107); CREATININE 1.23 MG/DL (0.60-1.10); GLUCOSE 318 MG/DL (70-104); MAGNESIUM 1.7 MG/DL (1.5-2.4); PHOSPHORUS 3.9 MG/DL (2.3-4.5); POTASSIUM 3.5 MMOL/L (3.5-5.1); SODIUM 138 MMOL/L (135-145); TOTAL CARBON DIOXIDE 34.4 MMOL/L (24-32); eGFR 60 ML/MIN
--- NOTE | 2020-01-26 06:17 | NUR ---
Problems reprioritized. Patient report given, questions answered & plan of care reviewed with Anna Case RN.
--- NOTE | 2020-01-26 06:30 | NUR ---
Patient in room PCU 3012. I have received report from RUBEN Hopper and had the opportunity to ask questions and assume patient care. Pt sleeping comfortably at change of shift.
[2020-01-26] MEDS: K and/or MAG REPLACEMENT MC SCH ×2 (08:00→20:00)
[2020-01-26] MEDS: aspirin 81mg tablet.DR PO SCH (08:26)
[2020-01-26] MEDS: atorvastatin 20mg tablet PO SCH (08:26)
[2020-01-26] MEDS: HYDROchlorothiazide 12.5mg capsule PO SCH ×2 (08:26→20:19)
[2020-01-26] MEDS: sulfamethoxazole/trimethoprim DS (800/160mg) tablet PO SCH ×2 (08:27→20:23)
[2020-01-26] MEDS: furosemide 40mg/4ml inj IV SCH ×2 (08:27→20:24)
[2020-01-26] MEDS: metoprolol succinate 25mg (24-HOUR) SR. Tablet PO SCH (08:27)
[2020-01-26] MEDS: spironolactone 25 MG tablet PO SCH (08:28)
[2020-01-26] MEDS: lisinopril 10 MG tablet PO SCH ×2 (08:29→20:23)
[2020-01-26] MEDS: insulin Lispro (HumaLOG) vial - multi-dose SQ SCH ×2 (08:41→18:53)
--- NOTE | 2020-01-26 10:08 | NUR ---
Paged Dr Garcia regarding Thora fluid and possibly needing an order for analysis. PAGER ID: [phone] MESSAGE: Re: Zia Hoyos [id number] Pt had Jarod Goldsmith recommended sending fluid for analysis, do you want me to put an order in? Thanks Anna [phone]
--- NOTE | 2020-01-26 11:49 | NUR ---
DM consult. Patient has A1c of 10.5%, he was recently provided with written and verbal DM education handout by CHRISTEL on 12/30. Additional education is not indicated at this time. Will continue to follow. Addendum: 01/26/20 at [address] Amended: Links added.
[2020-01-26 12:28] LABS: TOTAL PROTEIN,BODY FLUID < 2.0 G/DL
--- NOTE | 2020-01-26 18:18 | NUR ---
Problems reprioritized. Patient report given, questions answered & plan of care reviewed with RUBEN Hopper. Pt sitting up eating dinner at change of shift. All pt needs met at this time.
--- NOTE | 2020-01-26 18:23 | NUR ---
Patient in room PCU 3012. I have received report from Anna Case RN and had the opportunity to ask questions and assume patient care.
[2020-01-26] MEDS: budesonide 0.5mg/2ml UD nebule IH SCH (20:00)
[2020-01-26] MEDS: enoxaparin 40mg/0.4ml syringe SQ SCH (20:18)
[2020-01-26] MEDS: pramipexole 1mg tablet PO SCH (20:19)
--- NOTE | 2020-01-26 20:44 | NUR ---
Pulmicort BID at 1999 not given because patient is in shower.
[2020-01-26] MEDS: insulin glargine (Lantus) pen - multi-dose SQ SCH (22:02)
[2020-01-27 01:27] LABS: HEMATOCRIT 40.4 % (42.0-52.0); HEMOGLOBIN 13.5 g/dl (14.0-17.9); MEAN CORPUSCULAR HEMOGLOBIN 30.7 PG (27.0-31.0); MEAN CORPUSCULAR HGB CONC 33.3 g/dL (33.0-36.5); MEAN CORPUSCULAR VOLUME 92.2 FL (78-98); MEAN PLATELET VOLUME 7.8 FL (7.4-10.4); PLATELET COUNT 325 X10'3 (140-440); RED BLOOD COUNT 4.38 X10'6 (4.70-6.10); RED CELL DISTRIBUTION WIDTH 18.2 % (11.5-14.5); WHITE BLOOD COUNT 7.7 X10'3 (4.5-11.0)
[2020-01-27 01:40] LABS: PARTIAL THROMBOPLASTIN TIME 33 SECONDS (22-32)
[2020-01-27 01:41] LABS: ALBUMIN 2.9 G/DL (3.4-5.0); ANION GAP 3 (8-16); BLOOD UREA NITROGEN 28 MG/DL (7-18); BUN/CREATININE RATIO 25.2 (5.4-32.0); CALCIUM 9.5 MG/DL (8.5-10.1); CHLORIDE 100 MMOL/L (99-107); CREATININE 1.11 MG/DL (0.60-1.10); GLUCOSE 76 MG/DL (70-104); MAGNESIUM 1.7 MG/DL (1.5-2.4); PHOSPHORUS 4.8 MG/DL (2.3-4.5); POTASSIUM 3.4 MMOL/L (3.5-5.1); SODIUM 139 MMOL/L (135-145); TOTAL CARBON DIOXIDE 36.2 MMOL/L (24-32); eGFR 68 ML/MIN
[2020-01-27 02:00] VITALS: BP 136/82
--- NOTE | 2020-01-27 06:07 | NUR ---
Patient in room PCU 3012. I have received report from RUBEN Hopper and had the opportunity to ask questions and assume patient care. Pt sleeping comfortably at change of shift, no signs of distress noted.
--- NOTE | 2020-01-27 06:09 | NUR ---
Problems reprioritized. Patient report given, questions answered & plan of care reviewed with Anna Case RN.
[2020-01-27 07:00] VITALS: BP 105/80
[2020-01-27] MEDS: atorvastatin 20mg tablet PO SCH (07:36)
[2020-01-27] MEDS: spironolactone 25 MG tablet PO SCH (07:37)
[2020-01-27] MEDS: HYDROchlorothiazide 12.5mg capsule PO SCH (07:38)
[2020-01-27] MEDS: metoprolol succinate 25mg (24-HOUR) SR. Tablet PO SCH (07:39)
[2020-01-27] MEDS: sulfamethoxazole/trimethoprim DS (800/160mg) tablet PO SCH (07:39)
[2020-01-27] MEDS: aspirin 81mg tablet.DR PO SCH (07:39)
[2020-01-27] MEDS: lisinopril 10 MG tablet PO SCH (07:40)
[2020-01-27] MEDS: furosemide 40mg/4ml inj IV SCH (08:00)
[2020-01-27] MEDS: K and/or MAG REPLACEMENT MC SCH (08:00)
[2020-01-27] MEDS: budesonide 0.5mg/2ml UD nebule IH SCH (09:59)
[2020-01-27] MEDS ORDERED: PRAM0.5T12 PO (10:09)
[2020-01-27] MEDS ORDERED: INSU100V11 SQ (10:09)
[2020-01-27] MEDS ORDERED: SPIR25TA5 PO (10:09)
[2020-01-27] MEDS ORDERED: ATOR-2 PO (10:09)
[2020-01-27] MEDS ORDERED: FURO20TA4 PO (10:09)
[2020-01-27] MEDS ORDERED: ASPI81TA35 PO (10:09)
[2020-01-27] MEDS ORDERED: IPRA3AMP9 IH (10:09)
[2020-01-27] MEDS ORDERED: GLIM1TAB6 PO (10:09)
[2020-01-27] MEDS ORDERED: LISI1TAB32 PO (10:09)
[2020-01-27] MEDS ORDERED: BUDE10.27 IH (10:09)
[2020-01-27] MEDS ORDERED: BACDS PO (10:09)
[2020-01-27] MEDS ORDERED: LANTUS SQ (10:09)
[2020-01-27] MEDS ORDERED: METO-395 PO (10:09)
[2020-01-27] MEDS ORDERED: METF-438 PO (10:09)
[2020-01-27 11:00] VITALS: BP 114/58
--- NOTE | 2020-01-27 11:43 | NUR ---
carlos paged to rt for tx prior to pt dc. upon RT arrival pt was sleeping NAD Addendum: 01/27/20 at 1143 by Angie Pereira RT Amended: Links added.
--- NOTE | 2020-01-27 12:58 | NUR ---
Patient stable for discharge per MD orders. All belongings collected and sent with patient. Discharge instructions were given, all questions answered. PIV discontinued, cannula intact. Tele discontinued, telecom sales consultant notified. New RX sent to [facility] in [place], all RX's renewed. Called Roula Bernal MD at [facility] to schedule pt an appt, left voicemail to call patient and schedule follow up within one week. Wheeled pt to lobby and assisted into sister's personal vehicle.
== END 2020-01-27 12:58 | disposition home or self-care (01) ==
LOC: ER 11:43 → ED HOLD 15:14 → PCU 3S 19:20
PROVIDERS: ADMIT Family Medicine; ATTEND Family Medicine
PROC: 0W993ZZ Drainage of Right Pleural Cavity, Percutaneous Approach (ICD-10-PCS; principal; 2020-01-26)
PROC: 0W9G3ZZ Drainage of Peritoneal Cavity, Percutaneous Approach (ICD-10-PCS; 2020-01-26)
DX: R18.8 Other ascites (principal); E11.65 Type 2 diabetes mellitus with hyperglycemia; E78.00 Pure hypercholesterolemia, unspecified; F15.90 Other stimulant use, unspecified, uncomplicated; F17.210 Nicotine dependence, cigarettes, uncomplicated; I13.0 Hypertensive heart and chronic kidney disease with heart failure and stage 1 through stage 4 chronic kidney disease, or unspecified chronic kidney disease; B95.62 Methicillin resistant Staphylococcus aureus infection as the cause of diseases classified elsewhere; E11.22 Type 2 diabetes mellitus with diabetic chronic kidney disease; N18.9 Chronic kidney disease, unspecified; F32.9 Major depressive disorder, single episode, unspecified; I25.10 Atherosclerotic heart disease of native coronary artery without angina pectoris; I42.7 Cardiomyopathy due to drug and external agent; J91.8 Pleural effusion in other conditions classified elsewhere; Z66 Do not resuscitate; G89.29 Other chronic pain; M54.9 Dorsalgia, unspecified; I50.23 Acute on chronic systolic (congestive) heart failure; J44.9 Chronic obstructive pulmonary disease, unspecified; Z59.0 Homelessness; Z88.8 Allergy status to other drugs, medicaments and biological substances
CPT/HCPCS: 32555; 36415; 49083; 71045; 74176; 80048; 80053; 82948; 83735; 83880; 83986; 84100; 84157; 84484; 85008; 85025; 85027; 85610; 85730; 87081; 93005; 94640; 94760; 96374; 99285; G0378; J1650; J1815; J1940

== ENCOUNTER 2020-02-08 23:23 | Emergency (ER) | payer MEDICAID ==
[~2020-02-08] VITALS: Ht 175.3 cm; Wt 108.0 kg
[~2020-02-08 23:23] MED LIST changes: -ALBU18HF2 IH; -AMA1T PO; +BACDS PO; -BUDE10.22 INH; +BUDE10.27 IH; -FURO-150 PO; +FURO20TA4 PO; +GLIM1TAB6 PO; +INSU100V11 SQ; -IPRA3AMP31 INH; +IPRA3AMP9 IH; +LANTUS SQ; -LINA5TAB4 PO; +LISI1TAB32 PO; -LISI1TAB51 PO; +METF-438 PO; -METF-950 PO; -SPIR25TA PO; +SPIR25TA5 PO; -[UNRECOGNIZED DRUG - CODE] SQ
[2020-02-08] MEDS ORDERED: morphine 4 MG/ML inj SYRINge IV ONE (23:55)
[2020-02-09 01:08] LABS: BASOPHILS # (AUTO) 0.1 X10'3 (0-0.2); BASOPHILS % (AUTO) 0.7 % (0-1); EOSINOPHILS % (AUTO) 0.1 % (0-6); HEMATOCRIT 39.9 % (42.0-52.0); HEMOGLOBIN 13.1 g/dl (14.0-17.9); LYMPHOCYTES # (AUTO) 0.9 X10'3 (1.1-4.8); LYMPHOCYTES % (AUTO) 10.8 % (21-51); MEAN CORPUSCULAR HEMOGLOBIN 30.7 PG (27.0-31.0); MEAN CORPUSCULAR HGB CONC 32.9 g/dL (33.0-36.5); MEAN CORPUSCULAR VOLUME 93.5 FL (78-98); MEAN PLATELET VOLUME 8.3 FL (7.4-10.4); MONOCYTES # (AUTO) 0.7 X10'3 (0-0.9); MONOCYTES % (AUTO) 8.2 % (2-12); NEUTROPHILS # (AUTO) 6.5 X10'3 (1.8-7.7); NEUTROPHILS % (AUTO) 80.2 % (42-75); PLATELET COUNT 259 X10'3 (140-440); RED BLOOD COUNT 4.26 X10'6 (4.70-6.10); RED CELL DISTRIBUTION WIDTH 18.2 % (11.5-14.5); WHITE BLOOD COUNT 8.1 X10'3 (4.5-11.0)
[2020-02-09 01:13] LABS: ALANINE AMINOTRANSFERASE 54 U/L (12-78); ALBUMIN 3.2 G/DL (3.4-5.0); ALBUMIN/GLOBULIN RATIO 0.8 (1.1-1.5); ALKALINE PHOSPHATASE 143 IU/L (46-116); ANION GAP 8 (8-16); ASPARTATE AMINO TRANSFERASE 31 U/L (10-37); BILIRUBIN,TOTAL 2.3 MG/DL (0.1-1.0); BLOOD UREA NITROGEN 26 MG/DL (7-18); BUN/CREATININE RATIO 23.6 (5.4-32.0); CALCIUM 8.5 MG/DL (8.5-10.1); CHLORIDE 99 MMOL/L (99-107); GLUCOSE 244 MG/DL (70-104); SODIUM 133 MMOL/L (135-145); TOTAL CARBON DIOXIDE 26.2 MMOL/L (24-32); eGFR 69 ML/MIN
[2020-02-09 01:21] LABS: MAGNESIUM 1.8 MG/DL (1.5-2.4); TROPONIN I 0.04 NG/ML (0.0-0.05)
[2020-02-09 02:30] LABS: D-DIMER 2.33 MG/L FEU (0-0.50)
[2020-02-09] MEDS ORDERED: iohexol 350MG/ML 100ml bottle IV ONE (02:45)
[2020-02-09] MEDS ORDERED: METF500T PO (04:41)
[2020-02-09] MEDS ORDERED: AMA1T PO (04:41)
[2020-02-09] MEDS ORDERED: LISI1TAB32 PO (04:41)
[2020-02-09] MEDS ORDERED: FURO-150 PO (04:41)
[2020-02-09] MEDS ORDERED: SPIR25TA5 PO (04:41)
[2020-02-09] MEDS ORDERED: ASPI-1265 PO (04:41)
[2020-02-09] MEDS ORDERED: METO50TA7 PO (04:41)
[2020-02-09 04:54] VITALS: BP 130/100
== END 2020-02-09 05:40 | disposition home or self-care (01) ==
LOC: ER 23:23
DX: I42.9 Cardiomyopathy, unspecified (principal); F15.10 Other stimulant abuse, uncomplicated; I25.10 Atherosclerotic heart disease of native coronary artery without angina pectoris; I50.9 Heart failure, unspecified; E78.00 Pure hypercholesterolemia, unspecified; J44.9 Chronic obstructive pulmonary disease, unspecified; E11.9 Type 2 diabetes mellitus without complications; G89.29 Other chronic pain; F17.200 Nicotine dependence, unspecified, uncomplicated; Z59.0 Homelessness; Z20.828 Contact with and (suspected) exposure to other viral communicable diseases; Z98.890 Other specified postprocedural states; Z88.8 Allergy status to other drugs, medicaments and biological substances; Z79.82 Long term (current) use of aspirin; Z79.4 Long term (current) use of insulin; Z79.899 Other long term (current) drug therapy
CPT/HCPCS: 36415; 71045; 71275; 80053; 83735; 83880; 84484; 85025; 85379; 85610; 87635; 93005; 96374; 99285; C9803; J2270; Q9967

== ENCOUNTER 2020-03-07 18:01 | Inpatient (IN) | payer MEDICAID ==
[~2020-03-07] VITALS: Ht 175.3 cm; Wt 101.2 kg
[~2020-03-07 18:01] MED LIST changes: +AMA1T PO; +ASPI-1265 PO; +FURO-150 PO; +METF500T PO; +METO50TA7 PO
[2020-03-07 18:47] LABS: BASOPHILS # (AUTO) 0.1 X10'3 (0-0.2); BASOPHILS % (AUTO) 0.8 % (0-1); EOSINOPHILS # (AUTO) 0.1 X10'3 (0-0.9); EOSINOPHILS % (AUTO) 0.6 % (0-6); HEMATOCRIT 35.9 % (42.0-52.0); HEMOGLOBIN 11.7 g/dl (14.0-17.9); LYMPHOCYTES % (AUTO) 12.1 % (21-51); MEAN CORPUSCULAR HEMOGLOBIN 29.6 PG (27.0-31.0); MEAN CORPUSCULAR HGB CONC 32.6 g/dL (33.0-36.5); MEAN CORPUSCULAR VOLUME 90.8 FL (78-98); MEAN PLATELET VOLUME 7.5 FL (7.4-10.4); MONOCYTES # (AUTO) 0.7 X10'3 (0-0.9); MONOCYTES % (AUTO) 7.7 % (2-12); NEUTROPHILS # (AUTO) 6.7 X10'3 (1.8-7.7); NEUTROPHILS % (AUTO) 78.8 % (42-75); PLATELET COUNT 325 X10'3 (140-440); RED BLOOD COUNT 3.95 X10'6 (4.70-6.10); RED CELL DISTRIBUTION WIDTH 17.6 % (11.5-14.5); WHITE BLOOD COUNT 8.5 X10'3 (4.5-11.0)
[2020-03-07 19:11] LABS: ALANINE AMINOTRANSFERASE 31 U/L (12-78); ALBUMIN/GLOBULIN RATIO 0.7 (1.1-1.5); ALKALINE PHOSPHATASE 149 IU/L (46-116); ANION GAP 5 (8-16); ASPARTATE AMINO TRANSFERASE 26 U/L (10-37); BILIRUBIN,TOTAL 1.7 MG/DL (0.1-1.0); BLOOD UREA NITROGEN 27 MG/DL (7-18); BUN/CREATININE RATIO 22.1 (5.4-32.0); CALCIUM 8.9 MG/DL (8.5-10.1); CHLORIDE 101 MMOL/L (99-107); CREATININE 1.22 MG/DL (0.60-1.10); GLUCOSE 243 MG/DL (70-104); POTASSIUM 4.7 MMOL/L (3.5-5.1); SODIUM 135 MMOL/L (135-145); TOTAL CARBON DIOXIDE 29.2 MMOL/L (24-32); TOTAL PROTEIN 7.1 G/DL (6.4-8.2); eGFR 61 ML/MIN
[2020-03-07] MEDS ORDERED: furosemide 10 MG/1 ML 10ml inj IV ONE (19:35)
--- NOTE | 2020-03-07 19:35 | NUR ---
Pt yelling that he needs a comode. Pt informed we do not have those in [facility], Pt got up and ambulated to bathroom.
--- NOTE | 2020-03-07 19:49 | NUR ---
Pt still in restroom.
[2020-03-07] MEDS ORDERED: mag hydrox/Alum hydrox/simeth 30ml oral suspension PO PRN (20:15)
[2020-03-07] MEDS ORDERED: magnesium hydroxide 30ml (MOM) UD suspension PO PRN (20:15)
[2020-03-07] MEDS ORDERED: ondansetron/PF 4mg/2ml inj IV PRN (20:15)
[2020-03-07] MEDS ORDERED: magnesium 4gm in 100ml NS 100 ML IV PRN (20:15)
[2020-03-07] MEDS ORDERED: potassium Cl 20 mEq SR tablet PO PRN (20:15)
[2020-03-07] MEDS ORDERED: magnesium 2GM in 50ml NS 50 ML IV PRN (20:15)
[2020-03-07] MEDS ORDERED: acetaminophen 325mg tablet PO PRN (20:15)
[2020-03-07] MEDS ORDERED: potassium CL 10mEq/100ml bag 100 ML IV PRN ×2 (20:15)
[2020-03-07] MEDS ORDERED: furosemide 40mg/4ml inj IV ONE (22:15)
[2020-03-07] MEDS ORDERED: morphine 2 MG/ML inj. syringe IV PRN (22:20)
[2020-03-07] MEDS ORDERED: LORazepam 2 mg/ml vial IV PRN (22:20)
--- NOTE | 2020-03-07 22:39 | NUR ---
Patient unable to confirm home medictions. Patient states we can call his sister Madelaine [phone]
[2020-03-08 01:00] VITALS: BP 134/83
[2020-03-08] MEDS ORDERED: dextrose ORAL solution 15 GM/59 ML bottle PO PRN ×2 (01:20)
[2020-03-08] MEDS ORDERED: glucagon, human recombinant 1mg kit SUBCUT PRN (01:20)
[2020-03-08] MEDS ORDERED: MESSAGE TO PHARMACY PO ONE (01:20)
[2020-03-08] MEDS ORDERED: dextrose 50%-water 50ml dispensing syringe IV PRN ×2 (01:20)
--- NOTE | 2020-03-08 01:20 | NUR ---
PAGER ID: [phone] MESSAGE: Grover Hoyos, [facility] room 310 has DM type II, can we put him on hypo/hyperglycemic protocol. Stella
[2020-03-08 01:25] LABS: BASOPHILS # (AUTO) 0.1 X10'3 (0-0.2); BASOPHILS % (AUTO) 0.8 % (0-1); EOSINOPHILS # (AUTO) 0.1 X10'3 (0-0.9); EOSINOPHILS % (AUTO) 0.8 % (0-6); HEMATOCRIT 37.7 % (42.0-52.0); HEMOGLOBIN 12.6 g/dl (14.0-17.9); LYMPHOCYTES # (AUTO) 1.1 X10'3 (1.1-4.8); LYMPHOCYTES % (AUTO) 12.1 % (21-51); MEAN CORPUSCULAR HEMOGLOBIN 30.3 PG (27.0-31.0); MEAN CORPUSCULAR HGB CONC 33.5 g/dL (33.0-36.5); MEAN CORPUSCULAR VOLUME 90.4 FL (78-98); MEAN PLATELET VOLUME 7.6 FL (7.4-10.4); MONOCYTES # (AUTO) 0.8 X10'3 (0-0.9); MONOCYTES % (AUTO) 8.8 % (2-12); NEUTROPHILS # (AUTO) 7.2 X10'3 (1.8-7.7); NEUTROPHILS % (AUTO) 77.5 % (42-75); PLATELET COUNT 330 X10'3 (140-440); RED BLOOD COUNT 4.17 X10'6 (4.70-6.10); RED CELL DISTRIBUTION WIDTH 17.1 % (11.5-14.5); WHITE BLOOD COUNT 9.3 X10'3 (4.5-11.0)
[2020-03-08 01:31] LABS: ALANINE AMINOTRANSFERASE 31 U/L (12-78); ALBUMIN 3.2 G/DL (3.4-5.0); ALBUMIN/GLOBULIN RATIO 0.7 (1.1-1.5); ALKALINE PHOSPHATASE 148 IU/L (46-116); ANION GAP 5 (8-16); ASPARTATE AMINO TRANSFERASE 27 U/L (10-37); BILIRUBIN,TOTAL 2.2 MG/DL (0.1-1.0); BLOOD UREA NITROGEN 27 MG/DL (7-18); BUN/CREATININE RATIO 21.4 (5.4-32.0); CALCIUM 9.4 MG/DL (8.5-10.1); CHLORIDE 100 MMOL/L (99-107); CREATININE 1.26 MG/DL (0.60-1.10); GLUCOSE 233 MG/DL (70-104); POTASSIUM 3.8 MMOL/L (3.5-5.1); SODIUM 138 MMOL/L (135-145); TOTAL CARBON DIOXIDE 32.6 MMOL/L (24-32); TOTAL PROTEIN 7.5 G/DL (6.4-8.2); eGFR 59 ML/MIN
[2020-03-08 01:34] LABS: MAGNESIUM 2.1 MG/DL (1.5-2.4)
--- NOTE | 2020-03-08 01:36 | NUR ---
Received pt at 0100 from ER, received report from Mamie.
[2020-03-08 06:00] VITALS: BP 115/77
--- NOTE | 2020-03-08 06:04 | NUR ---
Problems reprioritized. Patient report given, questions answered & plan of care reviewed with Zohra MIRANDA.
--- NOTE | 2020-03-08 06:05 | NUR ---
Patient in room MED 310. I have received report from RUBEN ANDERSEN and had the opportunity to ask questions and assume patient care.
[2020-03-08] MEDS: K and/or MAG REPLACEMENT MC SCH ×2 (08:00→20:00)
[2020-03-08 08:40] LABS: URINE AMPHETAMINE SCREEN NEGATIVE (Neg); URINE BARBITUATE SCREEN NEGATIVE (Neg); URINE BENZODIAZEPINES SCREEN NEGATIVE (Neg); URINE CANNABINOID SCREEN NEGATIVE (Neg); URINE COCAINE SCREEN NEGATIVE (Neg); URINE METHADONE SCREEN NEGATIVE (Neg); URINE OPIATE SCREEN NEGATIVE (Neg); URINE PHENCYCLIDINE SCREEN NEGATIVE (Neg)
[2020-03-08] MEDS: furosemide 40mg/4ml inj IV SCH ×2 (09:26→20:44)
[2020-03-08] MEDS: aspirin 81mg tablet.DR PO SCH (09:27)
[2020-03-08] MEDS: spironolactone 25 MG tablet PO SCH (09:27)
[2020-03-08] MEDS: metoprolol tartrate 25mg tablet PO SCH ×2 (09:27→20:45)
[2020-03-08] MEDS: insulin Lispro (HumaLOG) vial - multi-dose SQ SCH (09:43)
[2020-03-08 10:00] VITALS: BP 110/71
[2020-03-08 14:00] VITALS: BP 107/67
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
[2020-03-08 18:00] VITALS: BP 110/63
--- NOTE | 2020-03-08 18:47 | NUR ---
Problems reprioritized. Patient report given, questions answered & plan of care reviewed with RUBEN ELIAS.
--- NOTE | 2020-03-08 20:06 | NUR ---
PAGER ID: [phone] MESSAGE: Pt [place] room 310 DNR just had a 38 beat run of Vtach, pt asymptomatic K 4.6 no MG today. LVEF 10-15% in Stella [phone]
[2020-03-08] MEDS: insulin glargine (Lantus) pen - multi-dose SQ SCH (20:47)
[2020-03-08] MEDS: nystatin 15 GM powder TP SCH (21:00)
[2020-03-08 22:00] VITALS: BP 113/65
[2020-03-09] VITALS (7 sets, daily range): BP systolic 91–117; BP diastolic 30–71
--- NOTE | 2020-03-09 06:06 | NUR ---
Problems reprioritized. Patient report given, questions answered & plan of care reviewed with Lico MIRANDA.
--- NOTE | 2020-03-09 06:08 | NUR ---
Patient in room MED 310. I have received report from RUBEN Douglas and had the opportunity to ask questions and assume patient care.
--- NOTE | 2020-03-09 06:08 | NUR ---
Patient in room MED 310. I have received report from RUBEN Douglas and had the opportunity to ask questions and assume patient care.
[2020-03-09 06:28] LABS: BASOPHILS # (AUTO) 0.1 X10'3 (0-0.2); BASOPHILS % (AUTO) 0.9 % (0-1); EOSINOPHILS # (AUTO) 0.1 X10'3 (0-0.9); EOSINOPHILS % (AUTO) 1.4 % (0-6); HEMATOCRIT 35.2 % (42.0-52.0); HEMOGLOBIN 11.8 g/dl (14.0-17.9); LYMPHOCYTES # (AUTO) 1.1 X10'3 (1.1-4.8); LYMPHOCYTES % (AUTO) 16.3 % (21-51); MEAN CORPUSCULAR HEMOGLOBIN 30.2 PG (27.0-31.0); MEAN CORPUSCULAR HGB CONC 33.5 g/dL (33.0-36.5); MEAN PLATELET VOLUME 7.5 FL (7.4-10.4); MONOCYTES # (AUTO) 0.7 X10'3 (0-0.9); MONOCYTES % (AUTO) 10.6 % (2-12); NEUTROPHILS # (AUTO) 4.8 X10'3 (1.8-7.7); NEUTROPHILS % (AUTO) 70.8 % (42-75); PLATELET COUNT 297 X10'3 (140-440); RED BLOOD COUNT 3.91 X10'6 (4.70-6.10); RED CELL DISTRIBUTION WIDTH 17.2 % (11.5-14.5); WHITE BLOOD COUNT 6.8 X10'3 (4.5-11.0)
[2020-03-09 06:42] LABS: ALANINE AMINOTRANSFERASE 23 U/L (12-78); ALBUMIN 2.6 G/DL (3.4-5.0); ALBUMIN/GLOBULIN RATIO 0.7 (1.1-1.5); ALKALINE PHOSPHATASE 118 IU/L (46-116); ANION GAP 3 (8-16); ASPARTATE AMINO TRANSFERASE 23 U/L (10-37); BILIRUBIN,TOTAL 1.8 MG/DL (0.1-1.0); BLOOD UREA NITROGEN 24 MG/DL (7-18); BUN/CREATININE RATIO 22.4 (5.4-32.0); CALCIUM 8.9 MG/DL (8.5-10.1); CHLORIDE 101 MMOL/L (99-107); CREATININE 1.07 MG/DL (0.60-1.10); GLUCOSE 115 MG/DL (70-104); MAGNESIUM 1.7 MG/DL (1.5-2.4); POTASSIUM 3.1 MMOL/L (3.5-5.1); SODIUM 140 MMOL/L (135-145); TOTAL CARBON DIOXIDE 35.8 MMOL/L (24-32); TOTAL PROTEIN 6.1 G/DL (6.4-8.2); eGFR 71 ML/MIN
[2020-03-09] MEDS: K and/or MAG REPLACEMENT MC SCH ×2 (09:00→20:00)
--- NOTE | 2020-03-09 09:00 | NUR ---
Patient refusing to have insulin "no because I will drop. I don't want to drop again."
--- NOTE | 2020-03-09 09:00 | NUR ---
Patient refused insulin.
--- NOTE | 2020-03-09 09:16 | NUR ---
DM consult received, has been addressed. Addendum: 03/09/20 at [address] Amended: Links added.
[2020-03-09] MEDS: aspirin 81mg tablet.DR PO SCH (09:17)
[2020-03-09] MEDS: potassium Cl 20 mEq SR tablet PO PRN ×3 (09:17→18:13)
[2020-03-09] MEDS: spironolactone 25 MG tablet PO SCH (09:18)
[2020-03-09] MEDS: metoprolol tartrate 25mg tablet PO SCH ×2 (09:18→20:37)
[2020-03-09] MEDS: furosemide 40mg/4ml inj IV SCH ×2 (09:19→20:37)
[2020-03-09] MEDS: nystatin 15 GM powder TP SCH ×3 (09:20→21:25)
--- NOTE | 2020-03-09 11:11 | NUR ---
Patient comfortable in bed and older adult social work specialist is at the bedside.
[2020-03-09] MEDS: HYDROcodone/acetaminophen 5mg/325mg tablet PO PRN (11:54)
--- NOTE | 2020-03-09 12:28 | NUR ---
Patient had 13 beat run of vtach. Patient denies any symptoms. Dr Blunt in to see patient and aware patient K is 3.1. New orders received to replace K to 4 and Mg to 2. Will continue to monitor.
[2020-03-09] MEDS: magnesium Cl slow-release 64mg tablet PO PRN ×2 (13:41→20:36)
[2020-03-09] MEDS: insulin Lispro (HumaLOG) vial - multi-dose SQ SCH (13:48)
[2020-03-09] MEDS ORDERED: albuterol 2.5 MG/3 ML nebule NEB PRN (17:10)
--- NOTE | 2020-03-09 17:36 | NUR ---
Patient removed SCD's, stated "they don't work and they were making my legs itchy" Addendum: 03/09/20 at 1739 by Edita CARR Amended: Links added.
--- NOTE | 2020-03-09 18:21 | NUR ---
Problems reprioritized. Patient report given, questions answered & plan of care reviewed with RUBEN Douglas.
--- NOTE | 2020-03-09 18:49 | NUR ---
Problems reprioritized. Patient report given, questions answered & plan of care reviewed with RUBEN Douglas.
--- NOTE | 2020-03-09 18:50 | NUR ---
Student documentation: I have reviewed and agree with all interventions, assessments performed and documented by SN Edita. Student Medication Administration: For this medication-pass time frame, all medication were reviewed, dispensed, administered and documented per hospital policy by Sn Edita.
[2020-03-09] MEDS: acetaZOLAMIDE 250mg tablet PO SCH (20:37)
[2020-03-09] MEDS: insulin glargine (Lantus) pen - multi-dose SQ SCH (20:47)
[2020-03-10 02:00] VITALS: BP 93/66
[2020-03-10] MEDS: HYDROcodone/acetaminophen 5mg/325mg tablet PO PRN (03:20)
--- NOTE | 2020-03-10 05:16 | NUR ---
Pt transferred to PCU, spoke with Mariano MIRANDA to give report on Pt.
[2020-03-10 05:53] VITALS: BP 108/80
--- NOTE | 2020-03-10 05:54 | NUR ---
Patient in room PCU 3023. I have received report from RUBEN Douglas and had the opportunity to ask questions and assume patient care. No signs of distress. Patient resting in bed, no signs of distress. Safety measures in place, bed in low and locked position. Call light and personal items within reach. Will continue to monitor for remainder of shift.
[2020-03-10 05:56] LABS: BASOPHILS # (AUTO) 0.1 X10'3 (0-0.2); BASOPHILS % (AUTO) 1.1 % (0-1); EOSINOPHILS # (AUTO) 0.1 X10'3 (0-0.9); EOSINOPHILS % (AUTO) 1.7 % (0-6); HEMATOCRIT 37.3 % (42.0-52.0); HEMOGLOBIN 12.1 g/dl (14.0-17.9); LYMPHOCYTES # (AUTO) 1.5 X10'3 (1.1-4.8); LYMPHOCYTES % (AUTO) 21.7 % (21-51); MEAN CORPUSCULAR HEMOGLOBIN 29.4 PG (27.0-31.0); MEAN CORPUSCULAR HGB CONC 32.4 g/dL (33.0-36.5); MEAN CORPUSCULAR VOLUME 90.5 FL (78-98); MEAN PLATELET VOLUME 7.7 FL (7.4-10.4); MONOCYTES # (AUTO) 0.7 X10'3 (0-0.9); MONOCYTES % (AUTO) 10.5 % (2-12); NEUTROPHILS # (AUTO) 4.6 X10'3 (1.8-7.7); PLATELET COUNT 314 X10'3 (140-440); RED BLOOD COUNT 4.12 X10'6 (4.70-6.10); RED CELL DISTRIBUTION WIDTH 17.2 % (11.5-14.5)
[2020-03-10 06:00] VITALS: BP 110/78
[2020-03-10 06:12] LABS: ALANINE AMINOTRANSFERASE 24 U/L (12-78); ALBUMIN/GLOBULIN RATIO 0.8 (1.1-1.5); ALKALINE PHOSPHATASE 126 IU/L (46-116); ANION GAP 4 (8-16); ASPARTATE AMINO TRANSFERASE 24 U/L (10-37); BILIRUBIN,TOTAL 1.4 MG/DL (0.1-1.0); BLOOD UREA NITROGEN 26 MG/DL (7-18); BUN/CREATININE RATIO 21.5 (5.4-32.0); CALCIUM 8.9 MG/DL (8.5-10.1); CHLORIDE 99 MMOL/L (99-107); CREATININE 1.21 MG/DL (0.60-1.10); GLUCOSE 124 MG/DL (70-104); MAGNESIUM 1.7 MG/DL (1.5-2.4); POTASSIUM 3.5 MMOL/L (3.5-5.1); SODIUM 138 MMOL/L (135-145); TOTAL CARBON DIOXIDE 35.3 MMOL/L (24-32); eGFR 61 ML/MIN
--- NOTE | 2020-03-10 06:15 | NUR ---
Problems reprioritized. Patient report given, questions answered & plan of care reviewed with RUBEN Lopez. Safety measures in place, bed in low and locked position. Call light and personal items within reach. Will continue to monitor for remainder of shift.
--- NOTE | 2020-03-10 06:28 | NUR ---
[place] documentation: I have reviewed and agree with all interventions, assessments performed and documented by Jayy MIRANDA. [place] Medication Administration: For this medication-pass time frame, all medication were reviewed, dispensed, administered and documented per hospital policy by Jayy MIRANDA.
--- NOTE | 2020-03-10 06:33 | NUR ---
Patient in room PCU 3023. I have received report from RUBEN Linares and had the opportunity to ask questions and assume patient care.
[2020-03-10] MEDS: spironolactone 25 MG tablet PO SCH (07:36)
[2020-03-10] MEDS: aspirin 81mg tablet.DR PO SCH (07:36)
[2020-03-10 07:37] VITALS: BP_SYST 110
[2020-03-10] MEDS: acetaZOLAMIDE 250mg tablet PO SCH (07:37)
[2020-03-10] MEDS: metoprolol tartrate 25mg tablet PO SCH (07:37)
[2020-03-10] MEDS: furosemide 40mg/4ml inj IV SCH (07:37)
[2020-03-10] MEDS: nystatin 15 GM powder TP SCH (08:00)
[2020-03-10] MEDS: K and/or MAG REPLACEMENT MC SCH (08:00)
[2020-03-10] MEDS ORDERED: ATOR-2 PO (09:38)
[2020-03-10] MEDS ORDERED: PRAM0.5T12 PO (09:38)
[2020-03-10] MEDS ORDERED: IPRA3AMP9 IH (09:38)
[2020-03-10] MEDS ORDERED: INSU100V11 SQ (09:38)
[2020-03-10] MEDS ORDERED: SPIR25TA5 PO (09:38)
[2020-03-10] MEDS ORDERED: GLIM1TAB6 PO (09:38)
[2020-03-10] MEDS ORDERED: LANTUS SQ (09:38)
[2020-03-10] MEDS ORDERED: LISI1TAB32 PO (09:38)
[2020-03-10] MEDS ORDERED: BUDE10.27 IH (09:38)
[2020-03-10] MEDS ORDERED: METO50TA7 PO (09:38)
[2020-03-10] MEDS ORDERED: METF-438 PO (09:38)
[2020-03-10] MEDS ORDERED: FURO20TA4 PO (09:38)
[2020-03-10] MEDS ORDERED: ASPI81TA35 PO (09:38)
[2020-03-10] MEDS: insulin Lispro (HumaLOG) vial - multi-dose SQ SCH (09:39)
--- NOTE | 2020-03-10 10:50 | NUR ---
Patient stable for discharge per MD orders. All discharge instructions gone over in detail with patient, including strict follow up/return precautions. IV cannula discontinued. Armbands cut off at time of discharge. Patient prescriptions e-scripted to [facility]. Patient belongings gathered. Ambulated to lobby with nursing staff. Patient seen ambulating off premises.
== END 2020-03-10 11:24 | disposition home or self-care (01) | DRG 194 ==
LOC: ER 18:03 → ED HOLD 20:13 → MED 3N 03-08 00:46 → PCU 3S 03-10 05:05
PROVIDERS: ADMIT Family Medicine; ATTEND Family Medicine
DX: I13.0 Hypertensive heart and chronic kidney disease with heart failure and stage 1 through stage 4 chronic kidney disease, or unspecified chronic kidney disease (principal); N50.89 Other specified disorders of the male genital organs; I50.23 Acute on chronic systolic (congestive) heart failure; N18.9 Chronic kidney disease, unspecified; D64.9 Anemia, unspecified; E11.22 Type 2 diabetes mellitus with diabetic chronic kidney disease; N17.9 Acute kidney failure, unspecified; E78.00 Pure hypercholesterolemia, unspecified; E78.5 Hyperlipidemia, unspecified; E87.3 Alkalosis; F15.10 Other stimulant abuse, uncomplicated; F17.210 Nicotine dependence, cigarettes, uncomplicated; I25.10 Atherosclerotic heart disease of native coronary artery without angina pectoris; I42.7 Cardiomyopathy due to drug and external agent; M54.9 Dorsalgia, unspecified; G89.29 Other chronic pain; J44.9 Chronic obstructive pulmonary disease, unspecified; Z66 Do not resuscitate; Z59.0 Homelessness; Z86.14 Personal history of Methicillin resistant Staphylococcus aureus infection; Z91.14 Patient's other noncompliance with medication regimen; Z20.828 Contact with and (suspected) exposure to other viral communicable diseases
CPT/HCPCS: 36415; 71045; 80053; 80305; 82948; 83036; 83735; 83880; 84484; 85025; 87081; 87635; 93005; 94640; 94760; 96374; 96375; 99285; C9803; G0378; J1815; J1940